=== PATIENT | female | born 1970 | race Caucasian/White ===

== ENCOUNTER 2020-01-07 00:20 | Inpatient (IN) ==
[2020-01-07] MEDS ORDERED: 0.9 % Sodium Chloride 250 ML IVC ONE (00:27)
[2020-01-07 00:52] LABS: Basophils % 0.3 %; Eosinophils # 0.1 K/mcL (0.0-0.6); Eosinophils % 1.2 %; Hematocrit 52.2 % (35.3-44.9); Hemoglobin 15.2 g/dL (11.5-15.4); Immature Granulocytes % 0.5 % (0-4); Lymphocytes # 1.7 K/mcL (0.6-4.6); Lymphocytes % 22.2 %; Mean Corpuscular HGB Conc 29.1 g/dL (31.6-35.5); Mean Corpuscular Hemoglobin 28.6 pg (28.0-33.3); Mean Corpuscular Volume 98.1 fL (83.0-100.0); Mean Platelet Volume 8.9 fL (9.4-12.4); Monocytes # 0.7 K/mcL (0.0-1.3); Monocytes % 9.5 %; Neutrophils # 5.1 K/mcL (1.6-8.9); Nucleated Red Blood Cells 1.3 /100 WBC (0); Platelet Count 247 K/mcL (140-400); Red Blood Count 5.32 M/mcL (3.82-4.97); Red Cell Distribution Width 20.3 % (11.5-14.5); Segmented Neutrophils % 66.3 %; White Blood Count 7.7 K/mcL (4.3-11.1)
[2020-01-07] MEDS ORDERED: Furosemide 40 MG/4 ML VIAL IVP ONE (00:59)
[2020-01-07 01:04] LABS: INR 1.3; Prothrombin Time 14.2 Seconds (9.4-12.1)
[2020-01-07 01:07] LABS: Activated Partial Thrombo Time 35.5 Seconds (26.0-36.0)
[2020-01-07 01:42] LABS: Alanine Aminotransferase < 3 Units/L (7-52); Albumin 4.1 g/dL (3.5-5.7); Albumin/Globulin Ratio 1.4 (1.1-2.2); Alkaline Phosphatase 111 Units/L (34-104); Aspartate Amino Transferase 16 Units/L (13-39); BUN/Creatinine Ratio 13 (6-26); Bilirubin,Total 0.5 mg/dL (0.3-1.0); Blood Urea Nitrogen 12 mg/dL (6-20); Calcium 8.9 mg/dL (8.6-10.3); Carbon Dioxide 32 mEq/L (23-29); Chloride 102 mEq/L (98-107); Glucose 117 mg/dL (70-105); Osmolality,Calculated 291 (280-300); Potassium 4.7 mEq/L (3.5-5.1); Sodium 140 mEq/L (136-145); Total Protein 7.1 g/dL (6.4-8.9); Troponin I < 0.03 ng/mL (< 0.04); eGFR For African Americans > 60 (> 60); eGFR For Non-African Americans > 60 (> 60)
[2020-01-07 02:10] LABS: Bilirubin,Urine Negative (Negative); Blood,Urine Negative (Negative); Clarity,Urine Clear (Clear); Color,Urine Yellow (Yellow); Glucose,Urine (UA) Normal (Normal); Ketones,Urine Negative (Negative); Leukocyte Esterase,Urine Negative (Negative); Nitrite,Urine Negative (Negative); PH,Urine 5.5 pH Units (5.0-8.0); Protein,Urine Negative (Neg-Trace); Specific Gravity,Urine 1.008 (1.010-1.025); Urobilinogen,Urine Normal (Normal)
[2020-01-07] MEDS ORDERED: Naloxone 0.4 MG/ML INJ IVP PRN (04:32)
[2020-01-07 06:52] LABS: ABG Base Excess 5 mEq/L (-2 to 3); ABG HCO3 41 mEq/L (21-27); ABG Oxygen Saturation 87 % (95-98); ABG PCO2 125 mmHg (35-45); ABG PH 7.12 pH Units (7.32-7.45); ABG PO2 75 mmHg (85-104); ABG TCO2 45 mEq/L (20-26)
[2020-01-07] MEDS ORDERED: Ipratropium Neb 0.5 MG NEBULIZER IH PRN (07:24)
[2020-01-07] MEDS: Furosemide 40 MG/4 ML VIAL IVP SCH ×2 (08:06→19:58)
[2020-01-07] MEDS: Ipratropium/Albuterol Neb 3 ML IH SCH ×5 (08:06→23:34)
[2020-01-07 08:09] LABS: ABG Base Excess 6 mEq/L (-2 to 3); ABG HCO3 42 mEq/L (21-27); ABG Oxygen Saturation 92 % (95-98); ABG PCO2 122 mmHg (35-45); ABG PH 7.15 pH Units (7.32-7.45); ABG PO2 87 mmHg (85-104); ABG TCO2 46 mEq/L (20-26); Blood Gas Pressure Support 12 cm H2O
[2020-01-07] MEDS: Budesonide/Formoterol 160/4.5 1 PUFF INH IH SCH ×3 (08:17→20:22)
[2020-01-07] MEDS ORDERED: Furosemide 20 MG/2 ML VIAL IVP SCH (09:00)
[2020-01-07 10:08] LABS: ABG Base Excess 5 mEq/L (-2 to 3); ABG HCO3 41 mEq/L (21-27); ABG Oxygen Saturation 92 % (95-98); ABG PCO2 121 mmHg (35-45); ABG PH 7.14 pH Units (7.32-7.45); ABG PO2 88 mmHg (85-104); ABG TCO2 44 mEq/L (20-26); Blood Gas Pressure Support 18 cm H2O
[2020-01-07] MEDS ORDERED: Perflutren Lipid Microsphere 1.3 ML in 0.9 % Sodium Chloride 8.7 ML IVP ONE (10:20)
[2020-01-07] MEDS: Azithromycin 500 MG in 0.9 % Sodium Chloride 250 ML IVPB SCH (10:30)
[2020-01-07] MEDS: Nystatin POWDER 30 GM BOTTLE TP SCH ×2 (13:32→19:57)
[2020-01-07] MEDS: methylPREDNISolone 125 MG/2 ML VIAL IVP SCH ×2 (15:12→23:33)
[2020-01-07 16:10] LABS: ABG Base Excess 10 mEq/L (-2 to 3); ABG HCO3 42 mEq/L (21-27); ABG Oxygen Saturation 90 % (95-98); ABG PCO2 85 mmHg (35-45); ABG PO2 70 mmHg (85-104); ABG TCO2 44 mEq/L (20-26); Blood Gas Pressure Support 18 cm H2O
[2020-01-07] MEDS: Apixaban 5 MG TABLET PO SCH (19:58)
[2020-01-07 21:37] LABS: ABG Base Excess 11 mEq/L (-2 to 3); ABG HCO3 44 mEq/L (21-27); ABG Oxygen Saturation 87 % (95-98); ABG PCO2 91 mmHg (35-45); ABG PH 7.29 pH Units (7.32-7.45); ABG PO2 62 mmHg (85-104); ABG TCO2 47 mEq/L (20-26)
[2020-01-08 01:15] LABS: ABG Base Excess 9 mEq/L (-2 to 3); ABG HCO3 38 mEq/L (21-27); ABG Oxygen Saturation 92 % (95-98); ABG PCO2 72 mmHg (35-45); ABG PH 7.33 pH Units (7.32-7.45); ABG PO2 70 mmHg (85-104); ABG TCO2 41 mEq/L (20-26); Blood Gas Modality AVAPS; Blood Gas Pressure Support 21 cm H2O; Blood Gas VT 550 cc
[2020-01-08 02:02] LABS: Basophils % 0.2 %; Hemoglobin 14.7 g/dL (11.5-15.4); Immature Granulocytes % 0.9 % (0-4); Lymphocytes # 0.7 K/mcL (0.6-4.6); Lymphocytes % 8.3 %; Mean Corpuscular HGB Conc 29.4 g/dL (31.6-35.5); Mean Corpuscular Volume 98.6 fL (83.0-100.0); Monocytes # 0.1 K/mcL (0.0-1.3); Monocytes % 1.4 %; Neutrophils # 7.7 K/mcL (1.6-8.9); Nucleated Red Blood Cells 0.6 /100 WBC (0); Platelet Count 211 K/mcL (140-400); Red Blood Count 5.07 M/mcL (3.82-4.97); Red Cell Distribution Width 19.9 % (11.5-14.5); Segmented Neutrophils % 89.2 %; White Blood Count 8.6 K/mcL (4.3-11.1)
[2020-01-08 02:18] LABS: VBG HCO3 37 mEq/L (21-27); VBG PCO2 71 mmHg (41-51); VBG PH 7.32 pH Units (7.32-7.42); VBG PO2 119 mmHg (25-50)
[2020-01-08 02:23] LABS: BUN/Creatinine Ratio 16 (6-26); Blood Urea Nitrogen 14 mg/dL (6-20); Carbon Dioxide 37 mEq/L (23-29); Chloride 99 mEq/L (98-107); Glucose 122 mg/dL (70-105); Magnesium 1.9 mg/dL (1.6-2.6); Osmolality,Calculated 294 (280-300); Phosphorous 3.9 mg/dL (2.7-4.5); Potassium 4.7 mEq/L (3.5-5.1); Sodium 141 mEq/L (136-145); eGFR For African Americans > 60 (> 60); eGFR For Non-African Americans > 60 (> 60)
[2020-01-08] MEDS: Ipratropium/Albuterol Neb 3 ML IH SCH ×5 (03:39→19:44)
[2020-01-08] MEDS: Budesonide/Formoterol 160/4.5 1 PUFF INH IH SCH ×3 (07:23→19:44)
[2020-01-08] MEDS: methylPREDNISolone 125 MG/2 ML VIAL IVP SCH ×2 (07:53→14:24)
[2020-01-08] MEDS: Apixaban 5 MG TABLET PO SCH ×2 (07:53→22:04)
[2020-01-08] MEDS: Azithromycin 500 MG in 0.9 % Sodium Chloride 250 ML IVPB SCH (07:54)
[2020-01-08] MEDS: Nystatin POWDER 30 GM BOTTLE TP SCH ×2 (08:03→22:06)
[2020-01-08] MEDS ORDERED: Furosemide 40 MG TABLET PO SCH (09:00)
[2020-01-08 09:04] LABS: Adenovirus Not Detected (Not Detect); Bordetella Pertussis Not Detected (Not Detect); Chlamydophila pneumoniae Not Detected (Not Detect); Coronavirus 229E Not Detected (Not Detect); Coronavirus HKU1 Not Detected (Not Detect); Coronavirus NL63 Not Detected (Not Detect); Coronavirus OC43 Not Detected (Not Detect); Human Metapneumovirus Not Detected (Not Detect); Human Rhinovirus/Enterovirus Not Detected (Not Detect); Influenza A Subtype 2009 H1 Not Detected (Not Detect); Influenza B Not Detected (Not Detect); Mycoplasma pneumoniae Not Detected (Not Detect); Parainfluenza Virus 1 Not Detected (Not Detect); Parainfluenza Virus 2 Not Detected (Not Detect); Parainfluenza Virus 3 Not Detected (Not Detect); Parainfluenza Virus 4 Not Detected (Not Detect); Respiratory Syncytial Virus Not Detected (Not Detect)
[2020-01-08] MEDS: lisinopriL 10 MG TABLET PO SCH (10:13)
[2020-01-08] MEDS: Furosemide 40 MG/4 ML VIAL IVP SCH ×2 (14:25→18:06)
[2020-01-08 14:59] LABS: VBG HCO3 36 mEq/L (21-27); VBG PCO2 56 mmHg (41-51); VBG PH 7.42 pH Units (7.32-7.42); VBG PO2 210 mmHg (25-50)
[2020-01-09] MEDS: Ipratropium/Albuterol Neb 3 ML IH SCH ×7 (00:13→23:22)
[2020-01-09] MEDS: methylPREDNISolone 125 MG/2 ML VIAL IVP SCH ×3 (01:07→16:01)
[2020-01-09] MEDS: Ondansetron 4 MG/2 ML VIAL IVP PRN (02:31)
[2020-01-09 04:20] LABS: VBG HCO3 39 mEq/L (21-27); VBG PCO2 66 mmHg (41-51); VBG PH 7.38 pH Units (7.32-7.42); VBG PO2 195 mmHg (25-50)
[2020-01-09] MEDS: Budesonide/Formoterol 160/4.5 1 PUFF INH IH SCH ×2 (07:48→19:36)
[2020-01-09] MEDS: lisinopriL 10 MG TABLET PO SCH (08:16)
[2020-01-09] MEDS: Apixaban 5 MG TABLET PO SCH ×2 (08:16→21:15)
[2020-01-09] MEDS: Azithromycin 500 MG in 0.9 % Sodium Chloride 250 ML IVPB SCH (08:17)
[2020-01-09] MEDS: Furosemide 40 MG/4 ML VIAL IVP SCH ×2 (08:17→16:01)
[2020-01-09] MEDS: Nystatin POWDER 30 GM BOTTLE TP SCH ×2 (08:20→21:17)
[2020-01-10] MEDS: methylPREDNISolone 125 MG/2 ML VIAL IVP SCH ×4 (00:20→23:54)
[2020-01-10 03:26] LABS: BUN/Creatinine Ratio 38 (6-26); Blood Urea Nitrogen 35 mg/dL (6-20); Calcium 9.6 mg/dL (8.6-10.3); Carbon Dioxide 39 mEq/L (23-29); Chloride 90 mEq/L (98-107); Glucose 127 mg/dL (70-105); Osmolality,Calculated 294 (280-300); Potassium 3.7 mEq/L (3.5-5.1); Sodium 137 mEq/L (136-145); eGFR For African Americans > 60 (> 60); eGFR For Non-African Americans > 60 (> 60)
[2020-01-10] MEDS: Ipratropium/Albuterol Neb 3 ML IH SCH ×6 (04:27→23:19)
[2020-01-10 04:43] LABS: Basophils % 0.1 %; Hematocrit 50.5 % (35.3-44.9); Hemoglobin 15.6 g/dL (11.5-15.4); Immature Granulocytes % 1.2 % (0-4); Lymphocytes # 0.9 K/mcL (0.6-4.6); Lymphocytes % 6.7 %; Mean Corpuscular HGB Conc 30.9 g/dL (31.6-35.5); Mean Corpuscular Hemoglobin 28.3 pg (28.0-33.3); Mean Corpuscular Volume 91.5 fL (83.0-100.0); Mean Platelet Volume 9.7 fL (9.4-12.4); Monocytes # 0.5 K/mcL (0.0-1.3); Monocytes % 3.3 %; Neutrophils # 12.4 K/mcL (1.6-8.9); Nucleated Red Blood Cells 0.4 /100 WBC (0); Platelet Count 260 K/mcL (140-400); Red Blood Count 5.52 M/mcL (3.82-4.97); Red Cell Distribution Width 19.8 % (11.5-14.5); Segmented Neutrophils % 88.7 %
[2020-01-10] MEDS: Budesonide/Formoterol 160/4.5 1 PUFF INH IH SCH ×2 (07:11→19:45)
[2020-01-10 07:13] LABS: ABG Base Excess 15 mEq/L (-2 to 3); ABG HCO3 42 mEq/L (21-27); ABG Oxygen Saturation 94 % (95-98); ABG PCO2 60 mmHg (35-45); ABG PH 7.45 pH Units (7.32-7.45); ABG PO2 68 mmHg (85-104); ABG TCO2 44 mEq/L (20-26)
[2020-01-10] MEDS ORDERED: Azithromycin 500 MG VIAL ONE (08:34)
[2020-01-10] MEDS ORDERED: Furosemide 120 MG in 0.9 % Sodium Chloride 50 ML IV ONE (08:55)
[2020-01-10] MEDS ORDERED: Isovue-370 500 ML BOTTLE IVP ONE (08:57)
[2020-01-10] MEDS ORDERED: methylPREDNISolone 125 MG/2 ML VIAL IVP ONE (09:07)
[2020-01-10] MEDS ORDERED: Ipratropium/Albuterol Neb 3 ML IH ONE (09:07)
[2020-01-10] MEDS ORDERED: *HR* Heparin 5,000 UNIT/ML VIAL IVP ONE (09:48)
[2020-01-10] MEDS ORDERED: *HR* Heparin 5,000 UNIT/ML VIAL IVP PRN ×2 (09:48)
[2020-01-10] MEDS ORDERED: Lidocaine -MPF 1% 5 ML AMPUL INFILT ONE (09:50)
[2020-01-10] MEDS ORDERED: Heparin 25,000 UNIT/250 ML D5W 25,000 UNIT/250 ML IV.SOLN IVC SCH (10:00)
[2020-01-10] MEDS: Nystatin POWDER 30 GM BOTTLE TP SCH ×2 (11:49→21:22)
[2020-01-10] MEDS: lisinopriL 10 MG TABLET PO SCH (11:49)
[2020-01-10] MEDS: Azithromycin 500 MG in 0.9 % Sodium Chloride 250 ML IVPB SCH (11:50)
[2020-01-10 11:52] LABS: Hematocrit 48.8 % (35.3-44.9); Hemoglobin 15.4 g/dL (11.5-15.4); Mean Corpuscular HGB Conc 31.6 g/dL (31.6-35.5); Mean Corpuscular Hemoglobin 28.6 pg (28.0-33.3); Mean Corpuscular Volume 90.5 fL (83.0-100.0); Mean Platelet Volume 8.8 fL (9.4-12.4); Platelet Count 215 K/mcL (140-400); Red Blood Count 5.39 M/mcL (3.82-4.97); Red Cell Distribution Width 19.7 % (11.5-14.5); White Blood Count 15.2 K/mcL (4.3-11.1)
[2020-01-10] MEDS: Piperacillin/Tazobactam 3.375 GM in 0.9 % Sodium Chloride Mini Bag 100 ML IVPB SCH ×2 (12:16→18:27)
[2020-01-10] MEDS: Dexmedetomidine HCl 400 MCG/100 ML MLS IVC SCH ×3 (12:17→22:07)
[2020-01-10 12:41] LABS: INR 1.1; Prothrombin Time 12.7 Seconds (9.4-12.1)
[2020-01-10 12:45] LABS: Heparin anti-factor XA UFH 1.12 IU/mL (0.30-0.70)
[2020-01-10] MEDS ORDERED: Aminoglycoside Consult 1 EACH MC ONE (13:08)
[2020-01-11] MEDS: Heparin 25,000 UNIT/250 ML D5W 25,000 UNIT/250 ML IV.SOLN IVC SCH ×3 (00:52→12:10)
[2020-01-11] MEDS: Dexmedetomidine HCl 400 MCG/100 ML MLS IVC SCH ×4 (02:56→19:19)
[2020-01-11] MEDS ORDERED: *HR* OxyCODONE/APAP 5/325 TABLET PO ONE (02:58)
[2020-01-11] MEDS: Ipratropium/Albuterol Neb 3 ML IH SCH ×5 (03:25→19:38)
[2020-01-11] MEDS: Piperacillin/Tazobactam 3.375 GM in 0.9 % Sodium Chloride Mini Bag 100 ML IVPB SCH ×3 (03:35→18:24)
[2020-01-11 06:45] LABS: Basophils % 0.2 %; Hematocrit 48.8 % (35.3-44.9); Hemoglobin 15.4 g/dL (11.5-15.4); Immature Granulocytes % 1.4 % (0-4); Lymphocytes # 0.9 K/mcL (0.6-4.6); Lymphocytes % 6.6 %; Mean Corpuscular HGB Conc 31.6 g/dL (31.6-35.5); Mean Corpuscular Hemoglobin 28.6 pg (28.0-33.3); Mean Corpuscular Volume 90.5 fL (83.0-100.0); Mean Platelet Volume 9.9 fL (9.4-12.4); Monocytes # 0.5 K/mcL (0.0-1.3); Neutrophils # 11.7 K/mcL (1.6-8.9); Nucleated Red Blood Cells 0.2 /100 WBC (0); Platelet Count 225 K/mcL (140-400); Red Blood Count 5.39 M/mcL (3.82-4.97); Red Cell Distribution Width 19.7 % (11.5-14.5); Segmented Neutrophils % 87.8 %; White Blood Count 13.3 K/mcL (4.3-11.1)
[2020-01-11 06:58] LABS: Alanine Aminotransferase 8 Units/L (7-52); Albumin 3.7 g/dL (3.5-5.7); Albumin/Globulin Ratio 1.3 (1.1-2.2); Alkaline Phosphatase 67 Units/L (34-104); Aspartate Amino Transferase 28 Units/L (13-39); BUN/Creatinine Ratio 36 (6-26); Bilirubin,Total 0.9 mg/dL (0.3-1.0); Blood Urea Nitrogen 30 mg/dL (6-20); Calcium 9.3 mg/dL (8.6-10.3); Carbon Dioxide 36 mEq/L (23-29); Chloride 92 mEq/L (98-107); Globulin 2.8 g/dL (2.4-3.5); Glucose 141 mg/dL (70-105); Osmolality,Calculated 297 (280-300); Sodium 139 mEq/L (136-145); Total Protein 6.5 g/dL (6.4-8.9); eGFR For African Americans > 60 (> 60); eGFR For Non-African Americans > 60 (> 60)
[2020-01-11] MEDS: Budesonide/Formoterol 160/4.5 1 PUFF INH IH SCH ×2 (07:18→19:39)
[2020-01-11] MEDS: lisinopriL 10 MG TABLET PO SCH (09:16)
[2020-01-11] MEDS: Azithromycin 500 MG in 0.9 % Sodium Chloride 250 ML IVPB SCH (09:16)
[2020-01-11] MEDS: methylPREDNISolone 125 MG/2 ML VIAL IVP SCH ×3 (09:16→23:14)
[2020-01-11] MEDS: Nystatin POWDER 30 GM BOTTLE TP SCH ×2 (09:17→20:24)
[2020-01-11 14:12] LABS: BUN/Creatinine Ratio 35 (6-26); Blood Urea Nitrogen 29 mg/dL (6-20); Calcium 9.4 mg/dL (8.6-10.3); Carbon Dioxide 34 mEq/L (23-29); Chloride 95 mEq/L (98-107); Glucose 124 mg/dL (70-105); Osmolality,Calculated 291 (280-300); Sodium 137 mEq/L (136-145); eGFR For African Americans > 60 (> 60); eGFR For Non-African Americans > 60 (> 60)
[2020-01-11] MEDS: Nicotine 14 MG PATCH.TD24 TD SCH (15:15)
[2020-01-11] MEDS: clonazePAM 0.5 MG TABLET PO PRN ×2 (15:15→23:14)
[2020-01-11] MEDS: Furosemide 20 MG/2 ML VIAL IVP SCH (17:25)
[2020-01-11] MEDS: *HR* Promethazine 25 MG/ML VIAL IVP PRN (22:33)
[2020-01-12] MEDS: Ipratropium/Albuterol Neb 3 ML IH SCH ×7 (00:10→23:22)
[2020-01-12] MEDS: Heparin 25,000 UNIT/250 ML D5W 25,000 UNIT/250 ML IV.SOLN IVC SCH ×3 (00:14→13:09)
[2020-01-12] MEDS: Dexmedetomidine HCl 400 MCG/100 ML MLS IVC SCH ×5 (03:12→23:39)
[2020-01-12] MEDS: Piperacillin/Tazobactam 3.375 GM in 0.9 % Sodium Chloride Mini Bag 100 ML IVPB SCH ×3 (03:55→18:01)
[2020-01-12 05:15] LABS: Basophils % 0.2 %; Hematocrit 48.3 % (35.3-44.9); Hemoglobin 15.4 g/dL (11.5-15.4); Immature Granulocytes % 1.1 % (0-4); Lymphocytes # 0.6 K/mcL (0.6-4.6); Lymphocytes % 3.2 %; Mean Corpuscular HGB Conc 31.9 g/dL (31.6-35.5); Mean Corpuscular Hemoglobin 28.6 pg (28.0-33.3); Mean Corpuscular Volume 89.8 fL (83.0-100.0); Mean Platelet Volume 9.6 fL (9.4-12.4); Neutrophils # 17.5 K/mcL (1.6-8.9); Platelet Count 187 K/mcL (140-400); Red Blood Count 5.38 M/mcL (3.82-4.97); Red Cell Distribution Width 19.5 % (11.5-14.5); Segmented Neutrophils % 90.5 %; White Blood Count 19.3 K/mcL (4.3-11.1)
[2020-01-12 05:35] LABS: BUN/Creatinine Ratio 32 (6-26); Blood Urea Nitrogen 31 mg/dL (6-20); Calcium 9.2 mg/dL (8.6-10.3); Carbon Dioxide 38 mEq/L (23-29); Chloride 93 mEq/L (98-107); Glucose 155 mg/dL (70-105); Osmolality,Calculated 294 (280-300); Potassium 3.8 mEq/L (3.5-5.1); Sodium 137 mEq/L (136-145); eGFR For African Americans > 60 (> 60); eGFR For Non-African Americans > 60 (> 60)
[2020-01-12] MEDS: clonazePAM 0.5 MG TABLET PO PRN ×2 (07:38→14:52)
[2020-01-12] MEDS: Nicotine 14 MG PATCH.TD24 TD SCH ×2 (07:38→09:25)
[2020-01-12] MEDS: Furosemide 20 MG/2 ML VIAL IVP SCH ×2 (07:38→19:56)
[2020-01-12] MEDS: methylPREDNISolone 125 MG/2 ML VIAL IVP SCH (07:38)
[2020-01-12] MEDS: lisinopriL 10 MG TABLET PO SCH (07:38)
[2020-01-12] MEDS: Nystatin POWDER 30 GM BOTTLE TP SCH ×2 (07:39→19:56)
[2020-01-12] MEDS: Budesonide/Formoterol 160/4.5 1 PUFF INH IH SCH ×2 (08:51→19:24)
[2020-01-12] MEDS ORDERED: Potassium Chloride Elixir 20 MEQ/15 ML UDC PO SCH (11:30)
[2020-01-12 14:13] LABS: ABG Base Excess 14 mEq/L (-2 to 3); ABG HCO3 40 mEq/L (21-27); ABG Oxygen Saturation 93 % (95-98); ABG PCO2 48 mmHg (35-45); ABG PH 7.53 pH Units (7.32-7.45); ABG PO2 62 mmHg (85-104); ABG TCO2 41 mEq/L (20-26)
[2020-01-12] MEDS ORDERED: clonazePAM 0.5 MG TABLET PO PRN (15:02)
[2020-01-12] MEDS: MethylPREDNISolone 40 MG/ML VIAL IVP SCH ×2 (15:05→23:40)
[2020-01-12 15:43] LABS: BUN/Creatinine Ratio 31 (6-26); Blood Urea Nitrogen 29 mg/dL (6-20); Calcium 9.2 mg/dL (8.6-10.3); Carbon Dioxide 36 mEq/L (23-29); Chloride 93 mEq/L (98-107); Glucose 138 mg/dL (70-105); Magnesium 2.1 mg/dL (1.6-2.6); Osmolality,Calculated 294 (280-300); Potassium 3.7 mEq/L (3.5-5.1); Sodium 138 mEq/L (136-145); eGFR For African Americans > 60 (> 60); eGFR For Non-African Americans > 60 (> 60)
[2020-01-12] MEDS: Doxycycline 100 MG in 0.9 % Sodium Chloride Mini Bag 100 ML IVPB SCH (17:52)
[2020-01-13] MEDS: Piperacillin/Tazobactam 3.375 GM in 0.9 % Sodium Chloride Mini Bag 100 ML IVPB SCH ×3 (02:19→17:01)
[2020-01-13] MEDS: Ipratropium/Albuterol Neb 3 ML IH SCH ×6 (03:13→23:16)
[2020-01-13 03:58] LABS: Basophils % 0.2 %; Hemoglobin 15.3 g/dL (11.5-15.4); Immature Granulocytes % 1.2 % (0-4); Lymphocytes # 0.8 K/mcL (0.6-4.6); Lymphocytes % 4.8 %; Mean Corpuscular HGB Conc 31.9 g/dL (31.6-35.5); Mean Corpuscular Hemoglobin 28.8 pg (28.0-33.3); Mean Corpuscular Volume 90.4 fL (83.0-100.0); Mean Platelet Volume 10.2 fL (9.4-12.4); Monocytes # 0.9 K/mcL (0.0-1.3); Monocytes % 5.5 %; Platelet Count 164 K/mcL (140-400); Red Blood Count 5.31 M/mcL (3.82-4.97); Red Cell Distribution Width 19.4 % (11.5-14.5); Segmented Neutrophils % 88.3 %; White Blood Count 15.9 K/mcL (4.3-11.1)
[2020-01-13] MEDS: Heparin 25,000 UNIT/250 ML D5W 25,000 UNIT/250 ML IV.SOLN IVC SCH ×3 (04:08→18:42)
[2020-01-13 04:17] LABS: BUN/Creatinine Ratio 32 (6-26); Blood Urea Nitrogen 26 mg/dL (6-20); Calcium 9.2 mg/dL (8.6-10.3); Carbon Dioxide 35 mEq/L (23-29); Chloride 92 mEq/L (98-107); Glucose 154 mg/dL (70-105); Magnesium 2.1 mg/dL (1.6-2.6); Osmolality,Calculated 296 (280-300); Potassium 3.6 mEq/L (3.5-5.1); Sodium 139 mEq/L (136-145); eGFR For African Americans > 60 (> 60); eGFR For Non-African Americans > 60 (> 60)
[2020-01-13] MEDS: Doxycycline 100 MG in 0.9 % Sodium Chloride Mini Bag 100 ML IVPB SCH ×2 (05:23→17:01)
[2020-01-13] MEDS: Furosemide 20 MG/2 ML VIAL IVP SCH ×2 (08:25→20:19)
[2020-01-13] MEDS: MethylPREDNISolone 40 MG/ML VIAL IVP SCH ×3 (08:25→23:17)
[2020-01-13] MEDS: Nicotine 14 MG PATCH.TD24 TD SCH (08:26)
[2020-01-13] MEDS: lisinopriL 10 MG TABLET PO SCH (08:26)
[2020-01-13] MEDS: Nystatin POWDER 30 GM BOTTLE TP SCH ×2 (08:26→20:20)
[2020-01-13 08:57] LABS: Adenovirus Not Detected (Not Detect); Bordetella Pertussis Not Detected (Not Detect); Chlamydophila pneumoniae Not Detected (Not Detect); Coronavirus 229E Not Detected (Not Detect); Coronavirus HKU1 Not Detected (Not Detect); Coronavirus NL63 Not Detected (Not Detect); Coronavirus OC43 Not Detected (Not Detect); Human Metapneumovirus Not Detected (Not Detect); Human Rhinovirus/Enterovirus Not Detected (Not Detect); Influenza A Subtype 2009 H1 Not Detected (Not Detect); Influenza B Not Detected (Not Detect); Mycoplasma pneumoniae Not Detected (Not Detect); Parainfluenza Virus 1 Not Detected (Not Detect); Parainfluenza Virus 2 Not Detected (Not Detect); Parainfluenza Virus 3 Not Detected (Not Detect); Parainfluenza Virus 4 Not Detected (Not Detect); Respiratory Syncytial Virus Not Detected (Not Detect)
[2020-01-13] MEDS: Apixaban 5 MG TABLET PO SCH (09:24)
[2020-01-13] MEDS: Furosemide 40 MG/4 ML VIAL IVP SCH (09:24)
[2020-01-13] MEDS ORDERED: *HR* Heparin 5,000 UNIT/ML VIAL IVP PRN ×2 (09:33)
[2020-01-13] MEDS: Dexmedetomidine HCl 400 MCG/100 ML MLS IVC SCH ×3 (10:52→15:09)
[2020-01-13] MEDS: Budesonide/Formoterol 160/4.5 1 PUFF INH IH SCH ×2 (11:22→19:19)
[2020-01-13] MEDS ORDERED: clonazePAM 0.5 MG TABLET PO SCH (15:00)
[2020-01-13] MEDS ORDERED: Furosemide 20 MG/2 ML VIAL IVP ONE (16:54)
[2020-01-13 18:24] LABS: BUN/Creatinine Ratio 35 (6-26); Blood Urea Nitrogen 28 mg/dL (6-20); Calcium 9.3 mg/dL (8.6-10.3); Carbon Dioxide 35 mEq/L (23-29); Chloride 95 mEq/L (98-107); Glucose 155 mg/dL (70-105); Magnesium 2.2 mg/dL (1.6-2.6); Osmolality,Calculated 291 (280-300); Sodium 136 mEq/L (136-145); eGFR For African Americans > 60 (> 60); eGFR For Non-African Americans > 60 (> 60)
[2020-01-13 22:07] LABS: Heparin anti-factor XA UFH 0.45 IU/mL (0.30-0.70)
[2020-01-13] MEDS: *HR* LORazepam 2 MG/ML VIAL IVP PRN (23:17)
[2020-01-14 00:07] LABS: Activated Partial Thrombo Time 45.6 Seconds (26.0-36.0)
[2020-01-14] MEDS: Dexmedetomidine HCl 400 MCG/100 ML MLS IVC SCH ×4 (01:05→14:36)
[2020-01-14] MEDS: Heparin 25,000 UNIT/250 ML D5W 25,000 UNIT/250 ML IV.SOLN IVC SCH ×2 (01:06→17:06)
[2020-01-14] MEDS: Ondansetron 4 MG/2 ML VIAL IVP PRN (01:41)
[2020-01-14] MEDS: Ipratropium/Albuterol Neb 3 ML IH SCH ×6 (03:19→23:47)
[2020-01-14] MEDS: Piperacillin/Tazobactam 3.375 GM in 0.9 % Sodium Chloride Mini Bag 100 ML IVPB SCH ×3 (04:07→17:07)
[2020-01-14 04:40] LABS: Basophils # 0.1 K/mcL (0.0-0.2); Basophils % 0.3 %; Hematocrit 52.3 % (35.3-44.9); Hemoglobin 16.6 g/dL (11.5-15.4); Immature Granulocytes % 1.3 % (0-4); Lymphocytes # 1.1 K/mcL (0.6-4.6); Lymphocytes % 5.4 %; Mean Corpuscular HGB Conc 31.7 g/dL (31.6-35.5); Mean Corpuscular Hemoglobin 28.6 pg (28.0-33.3); Mean Platelet Volume 10.4 fL (9.4-12.4); Monocytes # 0.8 K/mcL (0.0-1.3); Monocytes % 4.2 %; Neutrophils # 17.7 K/mcL (1.6-8.9); Platelet Count 149 K/mcL (140-400); Red Blood Count 5.81 M/mcL (3.82-4.97); Red Cell Distribution Width 19.8 % (11.5-14.5); Segmented Neutrophils % 88.8 %; White Blood Count 19.9 K/mcL (4.3-11.1)
[2020-01-14 04:46] LABS: BUN/Creatinine Ratio 35 (6-26); Blood Urea Nitrogen 28 mg/dL (6-20); Calcium 9.5 mg/dL (8.6-10.3); Carbon Dioxide 35 mEq/L (23-29); Chloride 92 mEq/L (98-107); Glucose 136 mg/dL (70-105); Magnesium 1.9 mg/dL (1.6-2.6); Osmolality,Calculated 290 (280-300); Potassium 4.6 mEq/L (3.5-5.1); Sodium 136 mEq/L (136-145); eGFR For African Americans > 60 (> 60); eGFR For Non-African Americans > 60 (> 60)
[2020-01-14] MEDS: *HR* LORazepam 2 MG/ML VIAL IVP PRN ×2 (05:22→21:44)
[2020-01-14] MEDS ORDERED: *HR* Metoprolol 5 MG/5 ML VIAL IVP ONE (05:28)
[2020-01-14] MEDS: Doxycycline 100 MG in 0.9 % Sodium Chloride Mini Bag 100 ML IVPB SCH ×2 (05:42→17:07)
[2020-01-14] MEDS: Budesonide/Formoterol 160/4.5 1 PUFF INH IH SCH ×2 (07:30→20:32)
[2020-01-14] MEDS: MethylPREDNISolone 40 MG/ML VIAL IVP SCH ×3 (09:06→17:15)
[2020-01-14] MEDS: Nicotine 14 MG PATCH.TD24 TD SCH (09:06)
[2020-01-14] MEDS: Furosemide 20 MG/2 ML VIAL IVP SCH ×2 (09:06→19:42)
[2020-01-14] MEDS: Nystatin POWDER 30 GM BOTTLE TP SCH ×2 (09:07→19:43)
[2020-01-14 09:56] LABS: Thyroid Stimulating Hormone 1.034 mcIU/mL (0.340-5.600)
[2020-01-14] MEDS: DilTIAZem 50 MG in 0.9 % Sodium Chloride 40 ML IVC SCH ×2 (11:01→17:14)
[2020-01-14] MEDS: *HR* Promethazine 25 MG/ML VIAL IVP PRN (22:33)
[2020-01-15] MEDS: Ipratropium/Albuterol Neb 3 ML IH SCH ×5 (03:51→20:22)
[2020-01-15] MEDS: Piperacillin/Tazobactam 3.375 GM in 0.9 % Sodium Chloride Mini Bag 100 ML IVPB SCH ×3 (04:08→18:52)
[2020-01-15] MEDS: *HR* LORazepam 2 MG/ML VIAL IVP PRN (04:09)
[2020-01-15 04:42] LABS: Basophils # 0.1 K/mcL (0.0-0.2); Basophils % 0.2 %; Hematocrit 51.1 % (35.3-44.9); Hemoglobin 16.6 g/dL (11.5-15.4); Lymphocytes # 2.1 K/mcL (0.6-4.6); Lymphocytes % 8.9 %; Mean Corpuscular HGB Conc 32.5 g/dL (31.6-35.5); Mean Corpuscular Hemoglobin 29.6 pg (28.0-33.3); Mean Corpuscular Volume 91.3 fL (83.0-100.0); Mean Platelet Volume 11.2 fL (9.4-12.4); Monocytes # 1.1 K/mcL (0.0-1.3); Monocytes % 4.5 %; Neutrophils # 20.3 K/mcL (1.6-8.9); Platelet Count 195 K/mcL (140-400); Red Cell Distribution Width 19.7 % (11.5-14.5); Segmented Neutrophils % 85.4 %; White Blood Count 23.8 K/mcL (4.3-11.1)
[2020-01-15 05:23] LABS: BUN/Creatinine Ratio 35 (6-26); Blood Urea Nitrogen 34 mg/dL (6-20); Calcium 9.2 mg/dL (8.6-10.3); Carbon Dioxide 35 mEq/L (23-29); Chloride 93 mEq/L (98-107); Glucose 109 mg/dL (70-105); Magnesium 1.8 mg/dL (1.6-2.6); Osmolality,Calculated 290 (280-300); Potassium 4.7 mEq/L (3.5-5.1); Sodium 136 mEq/L (136-145); eGFR For African Americans > 60 (> 60); eGFR For Non-African Americans > 60 (> 60)
[2020-01-15] MEDS ORDERED: *HR* Heparin 5,000 UNIT/ML VIAL IVP PRN ×2 (06:02)
[2020-01-15] MEDS ORDERED: *HR* LORazepam 2 MG/ML VIAL IVP PRN (06:02)
[2020-01-15] MEDS ORDERED: Naloxone 0.4 MG/ML INJ IVP PRN (06:02)
[2020-01-15] MEDS: Dexmedetomidine HCl 400 MCG/100 ML MLS IVC SCH ×3 (06:32→08:20)
[2020-01-15] MEDS: DilTIAZem 50 MG in 0.9 % Sodium Chloride 40 ML IVC SCH ×4 (06:33→23:48)
[2020-01-15] MEDS: Ondansetron 4 MG/2 ML VIAL IVP PRN ×2 (06:34→23:27)
[2020-01-15] MEDS: Doxycycline 100 MG in 0.9 % Sodium Chloride Mini Bag 100 ML IVPB SCH ×2 (06:34→18:11)
[2020-01-15] MEDS: MethylPREDNISolone 40 MG/ML VIAL IVP SCH (06:34)
[2020-01-15] MEDS: Heparin 25,000 UNIT/250 ML D5W 25,000 UNIT/250 ML IV.SOLN IVC SCH ×2 (07:30→10:31)
[2020-01-15] MEDS: Nicotine 14 MG PATCH.TD24 TD SCH (07:38)
[2020-01-15] MEDS: Furosemide 20 MG/2 ML VIAL IVP SCH ×2 (07:59→19:47)
[2020-01-15] MEDS: Nystatin POWDER 30 GM BOTTLE TP SCH ×2 (08:02→22:31)
[2020-01-15] MEDS: Budesonide/Formoterol 160/4.5 1 PUFF INH IH SCH ×2 (08:07→20:22)
[2020-01-15 10:13] LABS: Albumin 3.6 g/dL (3.5-5.7); Albumin/Globulin Ratio 1.2 (1.1-2.2); Bilirubin,Direct 0.2 mg/dL (0.0-0.2); Bilirubin,Indirect 0.9 mg/dL (0.0-1.0); Bilirubin,Total 1.1 mg/dL (0.3-1.0); Globulin 2.9 g/dL (2.4-3.5); Total Protein 6.5 g/dL (6.4-8.9)
[2020-01-15 11:43] LABS: Adenovirus F 40/41 PCR Not detected (Not detect); Astrovirus PCR Not detected (Not detect); C.difficile Toxin A/B Gene PCR Not detected (Not detect); Campylobacter by PCR Not detected (Not detect); Cryptosporidium by PCR Not detected (Not detect); Cyclospora cayetanensis PCR Not detected (Not detect); E. coli O157 by PCR Not detected (Not detect); Entamoeba histolytica PCR Not detected (Not detect); Enteroaggregative E.coli(EAEC) Not detected (Not detect); Enteropathogenic E.coli(EPEC) Not detected (Not detect); Enterotoxigenic E.coli (ETEC) Not detected (Not detect); Giardia lamblia PCR Not detected (Not detect); Norovirus GI/GII PCR Not detected (Not detect); Plesiomonas shigelloides PCR Not detected (Not detect); Rotavirus A PCR Not detected (Not detect); Salmonella PCR Not detected (Not detect); Sapovirus PCR Not detected (Not detect); Shig/EnteroinvasiveE coli EIEC Not detected (Not detect); Shigalike tox-prod E coli STEC Not detected (Not detect); Vibrio PCR Not detected (Not detect); Vibrio cholerae PCR Not detected (Not detect); Yersinia enterocolitica PCR Not detected (Not detect)
[2020-01-15] MEDS: clonazePAM 1 MG TABLET PO PRN ×2 (13:32→19:46)
[2020-01-15] MEDS ORDERED: MethylPREDNISolone 40 MG/ML VIAL IVP SCH (18:00)
[2020-01-16] MEDS: Ipratropium/Albuterol Neb 3 ML IH SCH ×6 (00:02→21:51)
[2020-01-16] MEDS: Dexmedetomidine HCl 400 MCG/100 ML MLS IVC SCH ×3 (01:26→19:31)
[2020-01-16] MEDS: Piperacillin/Tazobactam 3.375 GM in 0.9 % Sodium Chloride Mini Bag 100 ML IVPB SCH ×3 (03:12→18:24)
[2020-01-16] MEDS: *HR* Promethazine 25 MG/ML VIAL IVP PRN ×2 (03:25→21:56)
[2020-01-16] MEDS: Heparin 25,000 UNIT/250 ML D5W 25,000 UNIT/250 ML IV.SOLN IVC SCH ×3 (04:31→21:22)
[2020-01-16] MEDS: Doxycycline 100 MG in 0.9 % Sodium Chloride Mini Bag 100 ML IVPB SCH ×2 (06:06→17:27)
[2020-01-16 06:08] LABS: Basophils # 0.1 K/mcL (0.0-0.2); Basophils % 0.3 %; Eosinophils # 0.1 K/mcL (0.0-0.6); Eosinophils % 0.3 %; Hematocrit 51.7 % (35.3-44.9); Hemoglobin 15.9 g/dL (11.5-15.4); Immature Granulocytes % 1.2 % (0-4); Lymphocytes # 3.3 K/mcL (0.6-4.6); Lymphocytes % 16.7 %; Mean Corpuscular HGB Conc 30.8 g/dL (31.6-35.5); Mean Corpuscular Hemoglobin 28.4 pg (28.0-33.3); Mean Corpuscular Volume 92.3 fL (83.0-100.0); Mean Platelet Volume 10.8 fL (9.4-12.4); Monocytes # 1.3 K/mcL (0.0-1.3); Monocytes % 6.8 %; Neutrophils # 14.6 K/mcL (1.6-8.9); Platelet Count 171 K/mcL (140-400); Red Cell Distribution Width 20.1 % (11.5-14.5); Segmented Neutrophils % 74.7 %; White Blood Count 19.6 K/mcL (4.3-11.1)
[2020-01-16 06:36] LABS: BUN/Creatinine Ratio 32 (6-26); Blood Urea Nitrogen 30 mg/dL (6-20); Calcium 8.6 mg/dL (8.6-10.3); Carbon Dioxide 32 mEq/L (23-29); Chloride 100 mEq/L (98-107); Glucose 106 mg/dL (70-105); Magnesium 2.1 mg/dL (1.6-2.6); Osmolality,Calculated 293 (280-300); Potassium 3.3 mEq/L (3.5-5.1); Sodium 138 mEq/L (136-145); eGFR For African Americans > 60 (> 60); eGFR For Non-African Americans > 60 (> 60)
[2020-01-16] MEDS: Budesonide/Formoterol 160/4.5 1 PUFF INH IH SCH ×2 (07:25→21:51)
[2020-01-16] MEDS: Furosemide 20 MG/2 ML VIAL IVP SCH ×2 (07:45→20:13)
[2020-01-16] MEDS: Nicotine 14 MG PATCH.TD24 TD SCH (07:47)
[2020-01-16] MEDS: clonazePAM 1 MG TABLET PO PRN ×2 (07:49→21:55)
[2020-01-16] MEDS: DilTIAZem 50 MG in 0.9 % Sodium Chloride 40 ML IVC SCH ×3 (09:20→22:24)
[2020-01-16] MEDS: Nystatin POWDER 30 GM BOTTLE TP SCH ×2 (10:22→20:32)
[2020-01-16] MEDS ORDERED: Ipratropium/Albuterol Neb 3 ML ONE (15:53)
[2020-01-16] MEDS ORDERED: *HR* Rivaroxaban 10 MG TABLET PO SCH (17:00)
[2020-01-17] MEDS: Ipratropium/Albuterol Neb 3 ML IH SCH ×4 (03:49→21:52)
[2020-01-17 04:39] LABS: BUN/Creatinine Ratio 30 (6-26); Blood Urea Nitrogen 26 mg/dL (6-20); Carbon Dioxide 30 mEq/L (23-29); Chloride 101 mEq/L (98-107); Glucose 93 mg/dL (70-105); Osmolality,Calculated 292 (280-300); Potassium 4.1 mEq/L (3.5-5.1); Sodium 139 mEq/L (136-145); eGFR For African Americans > 60 (> 60); eGFR For Non-African Americans > 60 (> 60)
[2020-01-17] MEDS: DilTIAZem 50 MG in 0.9 % Sodium Chloride 40 ML IVC SCH (05:17)
[2020-01-17 05:54] LABS: Eosinophils % 1.3 %
[2020-01-17 05:56] LABS: Basophils % 0.2 %; Eosinophils # 0.2 K/mcL (0.0-0.6); Hematocrit 49.5 % (35.3-44.9); Immature Granulocytes % 1.3 % (0-4); Immature Platelets 9.7 % (1.1-6.1); Mean Corpuscular HGB Conc 30.3 g/dL (31.6-35.5); Mean Corpuscular Hemoglobin 28.5 pg (28.0-33.3); Mean Corpuscular Volume 93.9 fL (83.0-100.0); Mean Platelet Volume 10.4 fL (9.4-12.4); Monocytes # 1.2 K/mcL (0.0-1.3); Monocytes % 7.6 %; Red Blood Count 5.27 M/mcL (3.82-4.97); Red Cell Distribution Width 20.3 % (11.5-14.5); Segmented Neutrophils % 70.6 %; White Blood Count 15.6 K/mcL (4.3-11.1)
[2020-01-17] MEDS: Furosemide 20 MG/2 ML VIAL IVP SCH ×2 (08:27→22:36)
[2020-01-17] MEDS: Metoprolol 100 MG TABLET PO SCH ×2 (08:28→22:36)
[2020-01-17] MEDS: Nystatin POWDER 30 GM BOTTLE TP SCH ×2 (08:29→22:02)
[2020-01-17] MEDS: Nicotine 14 MG PATCH.TD24 TD SCH (08:29)
[2020-01-17] MEDS: clonazePAM 1 MG TABLET PO PRN ×3 (08:38→22:01)
[2020-01-17] MEDS: Budesonide/Formoterol 160/4.5 1 PUFF INH IH SCH ×2 (10:50→21:52)
[2020-01-17] MEDS: DilTIAZem CD (24hr) 120 MG CAP.ER.24H PO SCH (17:08)
[2020-01-17] MEDS: *HR* Promethazine 25 MG/ML VIAL IVP PRN (17:12)
[2020-01-17] MEDS: Apixaban 5 MG TABLET PO SCH (21:57)
[2020-01-17] MEDS: Ondansetron 4 MG/2 ML VIAL IVP PRN (22:36)
[2020-01-18] MEDS: Ipratropium/Albuterol Neb 3 ML IH SCH ×3 (03:27→15:43)
[2020-01-18] MEDS: DilTIAZem 50 MG in 0.9 % Sodium Chloride 40 ML IVC SCH ×2 (04:40→11:39)
[2020-01-18 05:12] LABS: ABG Base Excess 7 mEq/L (-2 to 3); ABG HCO3 33 mEq/L (21-27); ABG Oxygen Saturation 94 % (95-98); ABG PCO2 51 mmHg (35-45); ABG PH 7.42 pH Units (7.32-7.45); ABG PO2 69 mmHg (85-104); ABG TCO2 35 mEq/L (20-26)
[2020-01-18 05:30] LABS: BUN/Creatinine Ratio 27 (6-26); Blood Urea Nitrogen 22 mg/dL (6-20); Calcium 9.3 mg/dL (8.6-10.3); Carbon Dioxide 30 mEq/L (23-29); Chloride 102 mEq/L (98-107); Glucose 101 mg/dL (70-105); Osmolality,Calculated 287 (280-300); Potassium 4.3 mEq/L (3.5-5.1); Sodium 137 mEq/L (136-145); eGFR For African Americans > 60 (> 60); eGFR For Non-African Americans > 60 (> 60)
[2020-01-18 06:15] LABS: Basophils % 0.1 %; Eosinophils # 0.3 K/mcL (0.0-0.6); Eosinophils % 1.9 %; Hematocrit 47.6 % (35.3-44.9); Hemoglobin 14.8 g/dL (11.5-15.4); Immature Granulocytes % 1.1 % (0-4); Lymphocytes # 3.1 K/mcL (0.6-4.6); Lymphocytes % 21.4 %; Mean Corpuscular HGB Conc 31.1 g/dL (31.6-35.5); Mean Corpuscular Hemoglobin 28.5 pg (28.0-33.3); Mean Corpuscular Volume 91.7 fL (83.0-100.0); Monocytes # 1.1 K/mcL (0.0-1.3); Monocytes % 7.6 %; Neutrophils # 9.7 K/mcL (1.6-8.9); Platelet Count 239 K/mcL (140-400); Red Blood Count 5.19 M/mcL (3.82-4.97); Red Cell Distribution Width 19.9 % (11.5-14.5); Segmented Neutrophils % 67.9 %; White Blood Count 14.3 K/mcL (4.3-11.1)
[2020-01-18] MEDS: Metoprolol 100 MG TABLET PO SCH (08:55)
[2020-01-18] MEDS: Apixaban 5 MG TABLET PO SCH (08:55)
[2020-01-18] MEDS: DilTIAZem CD (24hr) 120 MG CAP.ER.24H PO SCH (08:56)
[2020-01-18] MEDS: clonazePAM 1 MG TABLET PO PRN ×2 (08:57→14:34)
[2020-01-18] MEDS: Nicotine 14 MG PATCH.TD24 TD SCH (08:58)
[2020-01-18] MEDS: Furosemide 20 MG/2 ML VIAL IVP SCH (08:58)
[2020-01-18] MEDS: Nystatin POWDER 30 GM BOTTLE TP SCH (09:08)
[2020-01-18] MEDS ORDERED: DilTIAZem CD (24hr) 120 MG CAP.ER.24H PO ONE (09:42)
[2020-01-18] MEDS: Budesonide/Formoterol 160/4.5 1 PUFF INH IH SCH (10:30)
[2020-01-18 16:05] VITALS: BP 111/79
[2020-01-19] MEDS ORDERED: DilTIAZem CD (24hr) 240 MG CAP.ER.24H PO SCH (09:00)
== END 2020-01-18 17:18 | disposition home or self-care (01) | DRG 194 ==
LOC: EMEROOARM 00:20 → 2NENU 00:20 → SUATTDRO 05:42 → ICNU 01-10 09:26 → 2NNU 01-15 12:05 → 2ANU 01-16 18:03
PROVIDERS: ADMIT Family Medicine; ATTEND Internal Medicine